=== PATIENT | female | born 1990 | race African-American/Black ===

== ENCOUNTER 2017-12-25 14:29 | Emergency (ER) | payer OTHER ==
--- NOTE | 2017-12-25 14:37 | PDOC ---
Rapid Medical Evaluation Time Seen by Provider: 12/25/17 14:34 Medical Evaluation: 12/25/17 14:34 I have performed a brief in person evaluation of this patient. The patient presents with chief complaint of : pain to the right lower abdomen with urinary frequency. lmp one week ago . Pertinent PE findings: none I have ordered the following: UA, urine preg, urine culture The patient will proceed to the ER for further evaluation.
[2017-12-25 14:40] VITALS: BP 123/76; PULSE 70; TEMP 98; BMI 27.9
[2017-12-25 15:49] LABS: URINE APPEARANCE CLEAR; URINE BILIRUBIN NEGATIVE (NEGATIVE); URINE BLOOD NEGATIVE (NEGATIVE); URINE COLOR YELLOW; URINE GLUCOSE (UA) NEGATIVE (NEGATIVE); URINE KETONE NEGATIVE (NEGATIVE); URINE LEUK ESTERASE NEGATIVE (NEGATIVE); URINE NITRITE NEGATIVE (NEGATIVE); URINE PROTEIN NEGATIVE (NEGATIVE); URINE UROBILINOGEN NEGATIVE mg/dL (0.2-1.0)
[2017-12-25 15:54] LABS: HCG,QUALITATIVE URINE NEGATIVE
--- NOTE | 2017-12-25 15:59 | PDOC ---
History of Present Illness <Juany Wheeler - Last Filed: 12/25/17 18:26> - General History Source: Patient Exam Limitations: No Limitations - History of Present Illness Initial Comments: 12/25/17 17:04 The patient is a 27 year old female, A2, with a significant PMH of HTN who presents to the emergency department with right lower and left lower quadrant pain that began approximately last night. The patient describes the abdominal pain as intermittent, burning, and states the pain was a 6/10 at its worst. The patient reports she experiences pain on either the LLQ or RLQ but never at the same time. The patient notes the RLQ and LLQ pain occasionally radiates to the low back and groin. Of note, the patient states she has been experiencing increased frequency of urination and intermittent nausea over the past month but the abdominal pain has begun 3 days ago. The patient states her LMP was one week ago. The patient reports she has 1 sexual partner and occasionally uses protection. The patient denies chest pain, shortness of breath, headache and dizziness. Denies fever, chills, nausea, vomit, diarrhea and constipation. Denies vaginal discharge or bleeding, dysuria, urgency and hematuria. Allergies: NKA Past surgical history: None reported. Social history: Drinks socially. No reported drug or cigarette use. PCP: Dr. Roberts <Kandy Astorga - Last Filed: 12/25/17 18:34> - General Chief Complaint: Pain Stated Complaint: ABD PAIN Time Seen by Provider: 12/25/17 14:34 Past History - Past Medical History COPD: No HTN: Yes - Suicide/Smoking/Psychosocial Hx Smoking History: Never smoked Have you smoked in the past 12 months: No Information on smoking cessation initiated: No Hx Alcohol Use: No Drug/Substance Use Hx: No Substance Use Type: None <Juany Wheeler - Last Filed: 12/25/17 18:26> <Kandy Astorga - Last Filed: 12/25/17 18:34> - Past Medical History Allergies/Adverse Reactions: Allergies Allergy/AdvReac Type Severity Reaction Status Date / Time No Known Allergies Allergy Verified 12/25/17 14:36 Home Medications: Ambulatory Orders Amlodipine Besylate 5 mg PO DAILY 12/25/17 Doxycycline Hyclate 100 mg PO BID #20 capsule 12/25/17 Review of Systems - Review of Systems Able to Perform ROS?: Yes Comments:: 12/25/17 17:05 GENERAL/CONSTITUTIONAL: No fever or chills. No weakness. HEAD, EYES, EARS, NOSE AND THROAT: No change in vision. No ear pain or discharge. No sore throat. CARDIOVASCULAR: No chest pain or shortness of breath. RESPIRATORY: No cough, wheezing, or hemoptysis. GASTROINTESTINAL: (+) LLQ and RLQ pain. No nausea, vomiting, diarrhea or constipation. GENITOURINARY: No dysuria, frequency, or change in urination. MUSCULOSKELETAL: No joint or muscle swelling or pain. No neck or back pain. SKIN: No rash NEUROLOGIC: No headache, vertigo, loss of consciousness, or change in strength/ sensation. ENDOCRINE: No increased thirst. No abnormal weight change. HEMATOLOGIC/LYMPHATIC: No anemia, easy bleeding, or history of blood clots. ALLERGIC/IMMUNOLOGIC: No hives or skin allergy. <Kandy Astorga - Last Filed: 12/25/17 18:34> *Physical Exam - Vital Signs Last Vital Signs Temp Pulse Resp BP Pulse Ox 98.0 F 70 12 123/76 100 12/25/17 14:36 12/25/17 14:36 12/25/17 14:36 12/25/17 14:36 12/25/17 14:36 <Juany Wheeler - Last Filed: 12/25/17 18:26> - Vital Signs Last Vital Signs Temp Pulse Resp BP Pulse Ox 98.0 F 70 12 123/76 100 12/25/17 14:36 12/25/17 14:36 12/25/17 14:36 12/25/17 14:36 12/25/17 14:36 - Physical Exam Comments: 12/25/17 17:06 GENERAL: Awake, alert, and fully oriented, in no acute distress HEAD: No signs of trauma EYES: PERRLA, EOMI, sclera anicteric, conjunctiva clear ENT: Auricles normal inspection, hearing grossly normal, nares patent, oropharynx clear without exudates. Moist mucosa NECK: Normal ROM, supple, no lymphadenopathy, JVD, or masses LUNGS: Breath sounds equal, clear to auscultation bilaterally. No wheezes, and no crackles HEART: Regular rate and rhythm, normal S1 and S2, no murmurs, rubs or gallops ABDOMEN: (+) RLQ and LLQ tender to palpation. Soft, normoactive bowel sounds. No guarding, no rebound. No masses : (+) Yellowish discharge coming out of the os. (+) Minimal adnexal or CMT tenderness. EXTREMITIES: Normal range of motion, no edema. No clubbing or cyanosis. No cords, erythema, or tenderness NEUROLOGICAL: Cranial nerves II through XII grossly intact. Normal speech, normal gait SKIN: Warm, Dry, normal turgor, no rashes or lesions noted. <Kandy Astorga - Last Filed: 12/25/17 18:34> ED Treatment Course - ADDITIONAL ORDERS Additional order review: Laboratory Results 12/25/17 15:15 Urine Color Yellow Urine Appearance Clear Urine pH 5.0 Ur Specific [place] 1.027 Urine Protein Negative Urine Glucose (UA) Negative Urine Ketones Negative Urine Blood Negative Urine Nitrite Negative Urine Bilirubin Negative Urine Urobilinogen Negative Ur Leukocyte Esterase Negative Urine HCG, Qual Negative <Juany Wheeler - Last Filed: 12/25/17 18:26> - ADDITIONAL ORDERS Additional order review: Laboratory Results 12/25/17 15:15 Urine Color Yellow Urine Appearance Clear Urine pH 5.0 Ur Specific [place] 1.027 Urine Protein Negative Urine Glucose (UA) Negative Urine Ketones Negative Urine Blood Negative Urine Nitrite Negative Urine Bilirubin Negative Urine Urobilinogen Negative Ur Leukocyte Esterase Negative Urine HCG, Qual Negative <Kandy Astorga - Last Filed: 12/25/17 18:34> Medical Decision Making - Medical Decision Making 12/25/17 18:26 Pt presents to the ED complaining of several weeks of pelvic pain, without nausea, vomiting, fever or diarrhea. Abdomen is non tender on my exam. + yellowish discharge coming from the OS on my pelvic exam, but minimal CMT and adnexal tenderness---findings are equivocal for PID. UA is negative. Will treat for PID, order doxycycline but tell patient not to start unless GC DNA probe is positive. Will discharge home with referral to primary [facility]. <Juany Wheeler - Last Filed: 12/25/17 18:26> *DC/Admit/Observation/Transfer - Discharge Dispostion Admit: No <Juany Wheeler - Last Filed: 12/25/17 18:26> - Attestations Scribe Attestion: 12/25/17 17:15 Documentation prepared by Kandy Astorga, acting as medical i d sales for Juany Wheeler MD. <Kandy Astorga - Last Filed: 12/25/17 18:34> Diagnosis at time of Disposition: Pelvic pain - Discharge Dispostion Disposition: HOME Condition at time of disposition: Good - Prescriptions Prescriptions: Doxycycline Hyclate 100 mg PO BID #20 capsule - Referrals Referrals: Nichole Roberts MD [Primary Care Provider] - - Patient Instructions Printed Discharge Instructions: DI for Pelvic Pain Additional Instructions: return to the ED for fever, severe pelvic or abdominal pain, nausea and vomiting , other new or worsening symptoms. You may have PID, which is a sexually transmitted infection--you recieved part of the treatment here today, but will need to start doxycycline if the test for Gonorrhea or Chlamydia is positive. there is a prescription for this medicine at your pharmacy. Call [phone] in two days for your results. Abstain from intercourse until you know the results of your tests.
[2017-12-25] MEDS ORDERED: AZITHROMYCIN 1 GM PACKET PO ONE (18:12)
[2017-12-25] MEDS ORDERED: AZITHROMYCIN 250 MG TABLET ONE (18:30)
[2017-12-25] MEDS ORDERED: WATER FOR INJ,STERILE 10 ML ONE (18:35)
== END 2017-12-25 18:52 | disposition home or self-care (01) ==
LOC: JER 14:29
DX: R10.2 Pelvic and perineal pain (principal); N73.8 Other specified female pelvic inflammatory diseases
CPT/HCPCS: 36415; 81003; 84703; 87086; 87491; 87591; 96372; 99282-25

== ENCOUNTER 2019-04-01 14:48 | Emergency (ER) | payer OTHER | END 2019-04-01 15:14 | disposition left against medical advice (07) | LOC: JERFT 14:48 ==

== ENCOUNTER 2019-08-30 08:28 | Emergency (ER) | payer OTHER ==
[2019-08-30 08:33] VITALS: BP 136/90; PULSE 70; TEMP 98.2; BMI 31.8
--- NOTE | 2019-08-30 09:07 | PDOC ---
History of Present Illness - General Chief Complaint: Vaginal Sxs Stated Complaint: STOMACH PAIN Time Seen by Provider: 08/30/19 08:35 History Source: Patient Exam Limitations: No Limitations Past History - Past Medical History Allergies/Adverse Reactions: Allergies Allergy/AdvReac Type Severity Reaction Status Date / Time No Known Allergies Allergy Verified 04/01/19 15:04 Home Medications: Ambulatory Orders Amlodipine Besylate 5 mg PO DAILY 12/25/17 Acetaminophen [Tylenol] 650 mg PO Q6H PRN 08/30/19 Fluconazole [Diflucan] 150 mg PO ONCE #1 tablet 08/30/19 Miconazole Nitrate [Monistat-7] 100 mg PV HS 7 Days #1 supp.vag 08/30/19 COPD: No HTN: Yes (amlodipine) - Reproductive History (#): 4 Para: 1 Spontaneous : 2 - Immunization History Immunization Up to Date: No - Psycho Social/Smoking Cessation Hx Smoking History: Never smoked Have you smoked in the past 12 months: No Hx Alcohol Use: No Drug/Substance Use Hx: No Substance Use Type: None *Physical Exam - Vital Signs Last Vital Signs Temp Pulse Resp BP Pulse Ox 98.2 F 70 17 136/90 99 08/30/19 08:31 08/30/19 08:31 08/30/19 08:31 08/30/19 08:31 08/30/19 08:31 - Physical Exam General Appearance: No: Apparent Distress Female Pelvic Exam: positive: normal external exam, discharge (thick, cottage like discharge). negative: CMT, adnexal tenderness, vaginal bleeding Gastrointestinal/Abdominal: positive: Normal Bowel Sounds, Soft. negative: Tender, Distended, Guarding, Rebound Integumentary: negative: Rash Neurologic: positive: Alert Medical Decision Making - Medical Decision Making 29 y/o F with hx of HTN presents with vaginal itching x 2 days. States has not noticed any unusual discharge. Denies fever, sob, cp, abd pain, n/v, urinary complaints. LNMP was 2 weeks ago. Patient also requesting STD checkup Patient with vaginal yeast infection STD (chlam/brenden/tric) sent; not currently suspicious for STD 08/30/19 09:01 Discharge - Discharge Information Problems reviewed: Yes Clinical Impression/Diagnosis: Candidiasis of female genitalia Condition: Stable Disposition: HOME - Admission No - Additional Discharge Information Prescriptions: Fluconazole [Diflucan] 150 mg PO ONCE #1 tablet Miconazole Nitrate [Monistat-7] 100 mg PV HS 7 Days #1 supp.vag Prescription Drug Monitoring Program (I-STOP) results: I-STOP not reviewed - Follow up/Referral - Patient Discharge Instructions Patient Printed Discharge Instructions: DI for Vaginal Yeast Infection Additional Instructions: Thank you for choosing [facility]. It was a pleasure taking care of you. Please take the Diflucan for your yeast infection. This alone will usually clear the infection If symptoms are still persisting, you may use the Monistat Follow-up with your professor of biochemistry Return to the Emergency Department if your symptoms worsen or persist or have other concerning symptoms. - Post Discharge Activity
== END 2019-08-30 09:22 | disposition home or self-care (01) ==
LOC: JERFT 08:28
DX: B37.3 Candidiasis of vulva and vagina (principal); I10 Essential (primary) hypertension
CPT/HCPCS: 36415; 87491; 87591; 87661; 99281-25

== ENCOUNTER 2020-11-29 09:10 | Inpatient (IN) | payer OTHER ==
[2020-11-29 10:11] VITALS: BMI 34.2
[2020-11-29] MEDS ORDERED: BUTORPHANOL TARTRATE 1 MG/ML VIAL IVPB PRN (10:42)
[2020-11-29] MEDS ORDERED: ELECTROLYTE-148 SOLN 1,000 ML IV SCH (10:45)
[2020-11-29] MEDS ORDERED: ELECTROLYTE-148 SOLN 500 ML IV ONE (11:04)
[2020-11-29] MEDS ORDERED: PROMETHAZINE HCL 25 MG/1 ML VIAL IVPUSH ONE (11:04)
[2020-11-29 11:55] LABS: BASO % 0.7 % (0-2.0); EOS % 0.3 % (0-4.5); HEMATOCRIT 34.9 % (32.4-45.2); HEMOGLOBIN 11.7 GM/dL (10.7-15.3); LYMPH % 16.7 % (8-40); MCH 30.5 pg (25.7-33.7); MCHC 33.6 g/dl (32.0-36.0); MEAN CELL VOLUME 90.7 fl (80-96); MEAN PLT VOLUME 8.7 fl (7.5-11.1); MONO % 21.3 % (3.8-10.2); PLATELET COUNT 190 K/MM3 (134-434); RBC 3.85 M/mm3 (3.60-5.2); RDW 14.7 % (11.6-15.6); WHITE BLOOD COUNT 3.6 K/mm3 (4.0-10.0)
[2020-11-29 12:02] LABS: INR 1.11 (0.83-1.09); PROTHROMBIN TIME (PATIENT) 13.4 SEC (9.7-13.0)
[2020-11-29 12:04] LABS: ACTIVATED PTT 30.2 SECONDS (25.2-36.5)
[2020-11-29 12:16] LABS: POTASSIUM 4.1 mmol/L (3.5-5.1)
[2020-11-29 12:17] LABS: BLOOD UREA NITROGEN 9.2 mg/dL (7-18); CALCIUM 8.8 mg/dL (8.5-10.1)
[2020-11-29 12:21] LABS: CREATININE 0.8 mg/dL (0.55-1.3)
[2020-11-29] MEDS ORDERED: DINOPROSTONE 10 MG VAGINAL SUPPOSITORY VG ONE (12:23)
[2020-11-29 12:24] LABS: ANISOCYTOSIS 0; MACROCYTOSIS 0; PLATELET ESTIMATE NORMAL
[2020-11-29 15:19] LABS: EPI CELLS 27 /uL (0-25.1); HYALINE CASTS 1 /uL (0-3.1); URINE APPEARANCE CLEAR; URINE BACTERIA 1639 /uL (0-1359); URINE BILIRUBIN NEGATIVE (NEGATIVE); URINE COLOR YELLOW; URINE GLUCOSE (UA) NEGATIVE (NEGATIVE); URINE KETONE 1+ (NEGATIVE); URINE LEUK ESTERASE TRACE (NEGATIVE); URINE NITRITE NEGATIVE (NEGATIVE); URINE PROTEIN NEGATIVE (NEGATIVE); URINE RBC 3 /uL (0-23.9); URINE UROBILINOGEN 0.2 mg/dL (0.2-1.0); URINE WBC 23 /uL (0-25.8)
[2020-11-29] MEDS ORDERED: ACETAMINOPHEN 1000 MG/100 ML VIAL (NON FORMULARY) IVPB PRN (18:08)
[2020-11-29] MEDS ORDERED: AMPICILLIN - 2 GM in SODIUM CHLORIDE 100 ML IVPB ONE (18:09)
[2020-11-29] MEDS ORDERED: ACETAMINOPHEN INJECTION 100 ML IVPB ONE (18:11)
[2020-11-29] MEDS ORDERED: AMPICILLIN SODIUM 2 GM VIAL ONE (18:11)
[2020-11-29] MEDS ORDERED: SODIUM CHLORIDE 100 ML IVPB ONE (18:11)
[2020-11-29 19:46] LABS: BASO % 0.5 % (0-2.0); EOS % 0.1 % (0-4.5); HEMATOCRIT 34.1 % (32.4-45.2); HEMOGLOBIN 11.7 GM/dL (10.7-15.3); LYMPH % 17.5 % (8-40); MCHC 34.3 g/dl (32.0-36.0); MEAN CELL VOLUME 90.4 fl (80-96); MEAN PLT VOLUME 9.1 fl (7.5-11.1); MONO % 17.1 % (3.8-10.2); NEUT % 64.8 % (42.8-82.8); PLATELET COUNT 177 K/MM3 (134-434); RBC 3.77 M/mm3 (3.60-5.2); RDW 14.5 % (11.6-15.6); WHITE BLOOD COUNT 4.5 K/mm3 (4.0-10.0)
[2020-11-29 19:55] LABS: INR 1.09 (0.83-1.09); PROTHROMBIN TIME (PATIENT) 13.2 SEC (9.7-13.0)
[2020-11-29 19:58] LABS: ACTIVATED PTT 31.5 SECONDS (25.2-36.5)
[2020-11-29 20:03] LABS: POTASSIUM 3.9 mmol/L (3.5-5.1)
[2020-11-29 20:05] LABS: ALBUMIN 2.8 g/dl (3.4-5.0); BLOOD UREA NITROGEN 8.8 mg/dL (7-18); CALCIUM 8.6 mg/dL (8.5-10.1)
[2020-11-29 20:08] LABS: CREATININE 0.8 mg/dL (0.55-1.3)
[2020-11-29 20:10] LABS: BILIRUBIN,TOTAL 0.4 mg/dL (0.2-1); TOT PROT 6.4 g/dl (6.4-8.2)
[2020-11-29] MEDS ORDERED: OXYTOCIN 30 UNITS in 0.9% NS 30 UNIT/500 ML INFUS.BAG IVPB SCH (21:00)
[2020-11-29] MEDS ORDERED: BISACODYL 10 MG SUPP.RECT PR PRN (21:01)
[2020-11-29] MEDS ORDERED: BENZOCAINE 28 GM HEMORRHOIDAL OINTMENT PR PRN (21:01)
[2020-11-29] MEDS ORDERED: WITCH HAZEL 50% (TUCKS) 40 PAD/JAR PAD TP PRN (21:01)
[2020-11-29] MEDS ORDERED: METHYLERGONOVINE MALEATE 0.2 MG/1 ML AMP IM PRN (21:01)
[2020-11-29] MEDS ORDERED: BENZOCAINE 20% 57 GM BOTTLE TP PRN (21:01)
[2020-11-29] MEDS ORDERED: PROMETHAZINE HCL 25 MG/1 ML VIAL ONE (21:15)
[2020-11-29] MEDS ORDERED: OXYTOCIN 30 UNITS in 0.9% NS 30 UNIT/500 ML INFUS.BAG IVPB ONE (21:15)
[2020-11-29] MEDS ORDERED: BUTORPHANOL TARTRATE 2 MG/ML VIAL ONE (21:15)
[2020-11-29] MEDS ORDERED: FENTANYL/BUPIVACAINE/NS/PF - PCEA - 50 ML DISP.SYRIN EP ONE (22:59)
[2020-11-29] MEDS ORDERED: PCA PUMP NR ONE (22:59)
[2020-11-29] MEDS ORDERED: LABETALOL HCL 100 MG TABLET (FP) ONE (22:59)
[2020-11-29] MEDS: LABETALOL HCL 100 MG TABLET (FP) PO SCH (23:00)
[2020-11-29] MEDS ORDERED: NALOXONE HCL 0.4 MG/ML VIAL IVPUSH PRN (23:11)
[2020-11-29] MEDS ORDERED: FENTANYL/BUPIVACAINE/NS/PF - PCEA - 50 ML DISP.SYRIN EP SCH (23:15)
[2020-11-29] MEDS ORDERED: BUPIVACAINE HCL/PF 0.25% (2.5MG/ML) 10 ML VIAL ONE (23:17)
[2020-11-30] MEDS ORDERED: SODIUM CHLORIDE 100 ML IVPB ONE ×3 (00:06→03:51)
[2020-11-30] MEDS ORDERED: AMPICILLIN SODIUM 1 GM VIAL ONE ×3 (00:06→03:51)
[2020-11-30] MEDS ORDERED: FENTANYL/BUPIVACAINE/NS/PF - PCEA - 50 ML DISP.SYRIN EP SCH (00:43)
[2020-11-30] MEDS: AMPICILLIN - 1 GM in SODIUM CHLORIDE 100 ML IVPB SCH ×3 (03:15→06:03)
[2020-11-30] MEDS ORDERED: FENTANYL/BUPIVACAINE/NS/PF - PCEA - 50 ML DISP.SYRIN EP ONE (03:51)
[2020-11-30] MEDS ORDERED: OXYTOCIN 20 UNITS in 0.9% NS 20 UNIT/1,000 ML INFUS.BAG IV ONE (03:52)
[2020-11-30] MEDS ORDERED: LIDOCAINE HCL 1% PRESERVATIVE FREE - 30ML VIAL ONE (03:52)
[2020-11-30] MEDS ORDERED: PCA PUMP NR ONE (05:03)
[2020-11-30] MEDS ORDERED: IBUPROFEN 600 MG TABLET (FP) PO ONE (07:55)
[2020-11-30] MEDS ORDERED: ACETAMINOPHEN 325 MG TABLET (FP) ONE (07:55)
[2020-11-30] MEDS ORDERED: OXYTOCIN 20 UNITS in 0.9% NS 20 UNIT/1,000 ML INFUS.BAG IV SCH (08:00)
[2020-11-30] MEDS: IBUPROFEN 600 MG TABLET (FP) PO PRN ×3 (08:00→23:09)
[2020-11-30 08:55] LABS: CORD BASE EXCESS -4.7 mmol/L (0-2); CORD PCO2 41.1 mmHg (30-78); CORD pH 7.326 (7.14-7.44)
[2020-11-30 08:56] LABS: CORD BASE EXCESS -4.7 mmol/L (0-2); CORD HCO3 22.6 mmHg (20-29); CORD PCO2 50.7 mmHg (30-78); CORD pH 7.267 (7.14-7.44)
[2020-11-30 08:59] LABS: BASO % 0.3 % (0-2.0); HEMATOCRIT 35.8 % (32.4-45.2); LYMPH % 10.9 % (8-40); MCH 30.8 pg (25.7-33.7); MCHC 33.6 g/dl (32.0-36.0); MEAN CELL VOLUME 91.6 fl (80-96); MEAN PLT VOLUME 8.6 fl (7.5-11.1); MONO % 9.7 % (3.8-10.2); NEUT % 79.1 % (42.8-82.8); PLATELET COUNT 155 K/MM3 (134-434); RDW 14.6 % (11.6-15.6); WHITE BLOOD COUNT 10.3 K/mm3 (4.0-10.0)
[2020-11-30] MEDS: LABETALOL HCL 100 MG TABLET (FP) PO SCH ×2 (10:10→23:07)
[2020-11-30] MEDS: ACETAMINOPHEN 325 MG TABLET (FP) PO PRN ×2 (13:29→23:09)
[2020-12-01] MEDS: ACETAMINOPHEN 325 MG TABLET (FP) PO PRN ×2 (10:09→19:53)
[2020-12-01] MEDS: IBUPROFEN 600 MG TABLET (FP) PO PRN ×2 (10:10→19:54)
[2020-12-01] MEDS: LABETALOL HCL 100 MG TABLET (FP) PO SCH ×2 (10:10→22:14)
[2020-12-02] MEDS: ACETAMINOPHEN 325 MG TABLET (FP) PO PRN ×2 (05:00→09:51)
[2020-12-02] MEDS: IBUPROFEN 600 MG TABLET (FP) PO PRN ×2 (05:00→09:52)
[2020-12-02] MEDS: LABETALOL HCL 100 MG TABLET (FP) PO SCH (09:51)
[2020-12-02 11:55] VITALS: BP 121/57; PULSE 94; TEMP 98.4
== END 2020-12-02 13:30 | disposition home or self-care (01) | DRG 560 ==
LOC: JLDR 09:10 → J3W 11-30 08:55
PROVIDERS: ADMIT Obstetrics & Gynecology; ATTEND Obstetrics & Gynecology
PROC: 10E0XZZ Delivery of Products of Conception, External Approach (ICD-10-PCS; principal; 2020-11-30)
DX: O16.4 Unspecified maternal hypertension, complicating childbirth (principal); O34.13 Maternal care for benign tumor of corpus uteri, third trimester; E86.0 Dehydration; Z3A.39 39 weeks gestation of pregnancy; Z37.0 Single live birth
CPT/HCPCS: 36415; 36600; 59409; 80048; 80053; 81003; 82803; 83605; 85025; 85461; 85610; 85730; 86780; 86850; 86870; 86900; 86901; 86902; 86999; 87040; 87086; 87389; J0131

== ENCOUNTER 2020-12-05 05:32 | Inpatient (IN) | payer OTHER ==
[2020-12-05] MEDS ORDERED: ACETAMINOPHEN 1000 MG/100 ML VIAL (NON FORMULARY) IVPB ONE (06:03)
[2020-12-05] MEDS ORDERED: SODIUM CHLORIDE 1,000 ML IV STA (06:03)
[2020-12-05] MEDS ORDERED: ACETAMINOPHEN INJECTION 100 ML IVPB ONE (06:32)
[2020-12-05 06:51] LABS: INR 1.06 (0.83-1.09)
[2020-12-05 06:54] LABS: ACTIVATED PTT 38.4 SECONDS (25.2-36.5)
[2020-12-05 07:01] LABS: POTASSIUM 3.9 mmol/L (3.5-5.1)
[2020-12-05 07:03] LABS: CALCIUM 7.8 mg/dL (8.5-10.1)
[2020-12-05 07:04] LABS: ALBUMIN 2.8 g/dl (3.4-5.0); BLOOD UREA NITROGEN 11.3 mg/dL (7-18)
[2020-12-05 07:06] LABS: BILIRUBIN,DIRECT 0.1 mg/dL (0.0-0.2)
[2020-12-05 07:08] LABS: BILIRUBIN,TOTAL 0.4 mg/dL (0.2-1)
[2020-12-05 07:09] LABS: TOT PROT 6.4 g/dl (6.4-8.2)
[2020-12-05 07:42] LABS: VENOUS BASE EXCESS -1.3 mmol/L (-2-2); VENOUS O2 SATURATION 87.7 % (70-80); VENOUS PCO2 33.2 mmHg (38-52); VENOUS PH 7.443 (7.310-7.410)
[2020-12-05 08:16] LABS: BASO % 0.1 % (0-2.0); HEMATOCRIT 37.2 % (32.4-45.2); HEMOGLOBIN 12.4 GM/dL (10.7-15.3); LYMPH % 13.1 % (8-40); MCH 30.3 pg (25.7-33.7); MCHC 33.3 g/dl (32.0-36.0); MEAN PLT VOLUME 8.6 fl (7.5-11.1); MONO % 2.6 % (3.8-10.2); NEUT % 84.2 % (42.8-82.8); PLATELET COUNT 179 K/MM3 (134-434); RBC 4.09 M/mm3 (3.60-5.2); RDW 14.8 % (11.6-15.6); WHITE BLOOD COUNT 5.8 K/mm3 (4.0-10.0)
[2020-12-05 08:27] LABS: EPI CELLS >36 /uL (0-25.1); HYALINE CASTS 4 /uL (0-3.1); PH,URINE 6.5 (5.0-8.0); URINE APPEARANCE CLEAR; URINE BACTERIA 219 /uL (0-1359); URINE BILIRUBIN NEGATIVE (NEGATIVE); URINE COLOR YELLOW; URINE GLUCOSE (UA) NEGATIVE (NEGATIVE); URINE KETONE NEGATIVE (NEGATIVE); URINE LEUK ESTERASE NEGATIVE (NEGATIVE); URINE NITRITE NEGATIVE (NEGATIVE); URINE PROTEIN 4+ (NEGATIVE); URINE RBC 9 /uL (0-23.9); URINE UROBILINOGEN 0.2 mg/dL (0.2-1.0); URINE WBC 16 /uL (0-25.8)
[2020-12-05] MEDS ORDERED: AZITHROMYCIN IVPB 500 MG in DEXTROSE 5%-WATER - 250 ML IVPB ONE (09:00)
[2020-12-05] MEDS ORDERED: AZITHROMYCIN IVPB 500 MG/250 ML BAG IVPB ONE (09:40)
[2020-12-05] MEDS: CHOLECALCIFEROL (VIT D3) 1,000 UNIT (25 MCG) TABLET PO SCH (13:00)
[2020-12-05] MEDS ORDERED: ENOXAPARIN NA (PORCINE) 30 MG/0.3 ML DISP.SYRIN SQ SCH (13:15)
[2020-12-05] MEDS ORDERED: ENOXAPARIN NA (PORCINE) 100 MG/1 ML DISP.SYRIN SQ ONE (13:16)
[2020-12-05] MEDS ORDERED: ACETAMINOPHEN 325 MG TABLET (FP) ONE (13:16)
[2020-12-05] MEDS: ACETAMINOPHEN 500 MG TABLET (FP) PO PRN ×2 (13:38→19:37)
[2020-12-05] MEDS: predniSONE 20 MG TABLET (UD) PO SCH (13:38)
[2020-12-05 15:37] VITALS: BMI 31.4
[2020-12-05 16:52] LABS: N-TERMINAL BNP 717.6 pg/ml (5-125)
[2020-12-05] MEDS: INSULIN SLIDING SCALE (NOVOLOG) 1 VIAL SQ SCH ×2 (17:47→21:49)
[2020-12-05] MEDS ORDERED: PT OWN MED DRAWER 7, Y5N ONE (21:27)
[2020-12-05] MEDS: LABETALOL HCL 100 MG TABLET (FP) PO SCH (21:51)
[2020-12-05] MEDS: ASCORBIC ACID 500 MG TABLET (FP) PO SCH (21:52)
[2020-12-05] MEDS: ENOXAPARIN NA (PORCINE) 100 MG/1 ML DISP.SYRIN SQ SCH (22:23)
[2020-12-06] MEDS ORDERED: guaiFENesin 200 MG/10 ML 10 ML UNIT-DOSE CUPS PO ONE (05:55)
[2020-12-06] MEDS: INSULIN SLIDING SCALE (NOVOLOG) 1 VIAL SQ SCH ×4 (06:00→22:35)
[2020-12-06 08:43] LABS: HEMATOCRIT 38.2 % (32.4-45.2); HEMOGLOBIN 12.8 GM/dL (10.7-15.3); MCH 30.5 pg (25.7-33.7); MCHC 33.5 g/dl (32.0-36.0); MEAN PLT VOLUME 8.6 fl (7.5-11.1); PLATELET COUNT 213 K/MM3 (134-434); RBC 4.19 M/mm3 (3.60-5.2); RDW 14.5 % (11.6-15.6); WHITE BLOOD COUNT 6.1 K/mm3 (4.0-10.0)
[2020-12-06 08:45] LABS: INR 1.08 (0.83-1.09)
[2020-12-06 08:47] LABS: ACTIVATED PTT 54.9 SECONDS (25.2-36.5)
[2020-12-06 09:06] LABS: CALCIUM 8.1 mg/dL (8.5-10.1)
[2020-12-06 09:07] LABS: ALBUMIN 2.4 g/dl (3.4-5.0); BLOOD UREA NITROGEN 11.9 mg/dL (7-18)
[2020-12-06 09:10] LABS: CREATININE 0.7 mg/dL (0.55-1.3); PHOSPHOROUS 3.6 mg/dL (2.5-4.9)
[2020-12-06 09:11] LABS: BILIRUBIN,TOTAL 0.6 mg/dL (0.2-1)
[2020-12-06] MEDS: CHOLECALCIFEROL (VIT D3) 1,000 UNIT (25 MCG) TABLET PO SCH (09:32)
[2020-12-06] MEDS: LABETALOL HCL 100 MG TABLET (FP) PO SCH ×2 (09:32→22:28)
[2020-12-06] MEDS: ZINC SULFATE 220 MG CAPSULE (FP) PO SCH (09:32)
[2020-12-06] MEDS: ACETAMINOPHEN 500 MG TABLET (FP) PO PRN ×3 (09:32→22:36)
[2020-12-06] MEDS: ASCORBIC ACID 500 MG TABLET (FP) PO SCH ×2 (09:32→22:28)
[2020-12-06] MEDS: predniSONE 20 MG TABLET (UD) PO SCH (09:32)
[2020-12-06] MEDS: ENOXAPARIN NA (PORCINE) 100 MG/1 ML DISP.SYRIN SQ SCH ×2 (09:48→22:29)
[2020-12-06] MEDS ORDERED: AZITHROMYCIN 250 MG TABLET PO SCH (10:00)
[2020-12-06] MEDS: guaiFENesin 200 MG/10 ML 10 ML UNIT-DOSE CUPS PO PRN ×2 (15:39→22:28)
[2020-12-06] MEDS: OSELTAMIVIR PHOSPHATE 75 MG CAPSULE PO SCH (22:28)
[2020-12-06] MEDS ORDERED: MELATONIN 5 MG TABLETS PO ONE (23:35)
[2020-12-07] MEDS: BENZOCAINE/MENTH/CETYLPYRD CL 1 EACH LOZENGE MM PRN ×3 (00:04→21:14)
[2020-12-07] MEDS: guaiFENesin 200 MG/10 ML 10 ML UNIT-DOSE CUPS PO PRN (04:49)
[2020-12-07] MEDS: INSULIN SLIDING SCALE (NOVOLOG) 1 VIAL SQ SCH ×4 (06:31→22:00)
[2020-12-07] MEDS: ACETAMINOPHEN 500 MG TABLET (FP) PO PRN ×3 (06:34→21:24)
[2020-12-07 08:28] LABS: HEMOGLOBIN 12.5 GM/dL (10.7-15.3); MCH 30.7 pg (25.7-33.7); MCHC 33.7 g/dl (32.0-36.0); PLATELET COUNT 232 K/MM3 (134-434); RBC 4.06 M/mm3 (3.60-5.2); RDW 14.7 % (11.6-15.6); WHITE BLOOD COUNT 8.2 K/mm3 (4.0-10.0)
[2020-12-07 08:50] LABS: POTASSIUM 3.7 mmol/L (3.5-5.1)
[2020-12-07 09:14] LABS: CALCIUM 7.7 mg/dL (8.5-10.1)
[2020-12-07 09:15] LABS: BLOOD UREA NITROGEN 12.1 mg/dL (7-18); MAGNESIUM 1.6 mg/dL (1.8-2.4)
[2020-12-07 09:17] LABS: CREATININE 0.8 mg/dL (0.55-1.3)
[2020-12-07] MEDS: ENOXAPARIN NA (PORCINE) 100 MG/1 ML DISP.SYRIN SQ SCH ×2 (09:17→21:14)
[2020-12-07] MEDS: CHOLECALCIFEROL (VIT D3) 1,000 UNIT (25 MCG) TABLET PO SCH (09:17)
[2020-12-07] MEDS: OSELTAMIVIR PHOSPHATE 75 MG CAPSULE PO SCH ×2 (09:17→21:13)
[2020-12-07] MEDS: ASCORBIC ACID 500 MG TABLET (FP) PO SCH ×2 (09:17→21:14)
[2020-12-07] MEDS: LABETALOL HCL 100 MG TABLET (FP) PO SCH ×2 (09:17→21:13)
[2020-12-07] MEDS: DEXAMETHASONE SOD PHOSPHATE 4 MG/1 ML VIAL IVPUSH SCH (09:17)
[2020-12-07] MEDS: ZINC SULFATE 220 MG CAPSULE (FP) PO SCH (09:17)
[2020-12-07 09:18] LABS: ALBUMIN 2.4 g/dl (3.4-5.0); BILIRUBIN,TOTAL 0.4 mg/dL (0.2-1); PHOSPHOROUS 2.8 mg/dL (2.5-4.9)
[2020-12-07] MEDS ORDERED: INSULIN (NOVOLOG) ASPART 100 UNITS/ML 10ML VIAL ONE (17:42)
[2020-12-08] MEDS: guaiFENesin 200 MG/10 ML 10 ML UNIT-DOSE CUPS PO PRN ×2 (02:20→05:45)
[2020-12-08] MEDS: INSULIN SLIDING SCALE (NOVOLOG) 1 VIAL SQ SCH ×4 (06:01→22:26)
[2020-12-08 08:16] LABS: HEMATOCRIT 38.5 % (32.4-45.2); HEMOGLOBIN 12.9 GM/dL (10.7-15.3); MCH 30.3 pg (25.7-33.7); MCHC 33.7 g/dl (32.0-36.0); MEAN CELL VOLUME 90.1 fl (80-96); MEAN PLT VOLUME 7.9 fl (7.5-11.1); PLATELET COUNT 252 K/MM3 (134-434); RBC 4.27 M/mm3 (3.60-5.2); RDW 14.6 % (11.6-15.6); WHITE BLOOD COUNT 8.8 K/mm3 (4.0-10.0)
[2020-12-08 08:35] LABS: POTASSIUM 4.2 mmol/L (3.5-5.1)
[2020-12-08 08:38] LABS: BLOOD UREA NITROGEN 11.3 mg/dL (7-18); CALCIUM 8.3 mg/dL (8.5-10.1)
[2020-12-08 08:41] LABS: CREATININE 0.7 mg/dL (0.55-1.3)
[2020-12-08] MEDS: ACETAMINOPHEN 500 MG TABLET (FP) PO PRN (09:22)
[2020-12-08] MEDS: DEXAMETHASONE SOD PHOSPHATE 4 MG/1 ML VIAL IVPUSH SCH (09:24)
[2020-12-08] MEDS: ENOXAPARIN NA (PORCINE) 100 MG/1 ML DISP.SYRIN SQ SCH ×2 (09:25→22:01)
[2020-12-08] MEDS: LABETALOL HCL 100 MG TABLET (FP) PO SCH ×2 (09:25→21:49)
[2020-12-08] MEDS: OSELTAMIVIR PHOSPHATE 75 MG CAPSULE PO SCH ×2 (09:25→21:49)
[2020-12-08] MEDS: CHOLECALCIFEROL (VIT D3) 1,000 UNIT (25 MCG) TABLET PO SCH (09:26)
[2020-12-08] MEDS: ASCORBIC ACID 500 MG TABLET (FP) PO SCH ×2 (09:26→21:49)
[2020-12-08] MEDS: ZINC SULFATE 220 MG CAPSULE (FP) PO SCH (09:26)
[2020-12-08] MEDS ORDERED: REMDESIVIR 200 MG in SODIUM CHLORIDE 210 ML IVPB ONE (12:00)
[2020-12-08] MEDS ORDERED: PT OWN MED DRAWER 7, Y5N ONE (12:43)
[2020-12-08] MEDS: ALBUTEROL SO4 HFA INHALER IH SCH ×3 (12:49→20:51)
[2020-12-08] MEDS: BUDESONIDE/FORMETEROL FUMARATE 160/4.5 mcg INHALER IH SCH ×2 (12:49→22:02)
[2020-12-08] MEDS ORDERED: INSULIN (NOVOLOG) ASPART 100 UNITS/ML 10ML VIAL ONE (17:06)
[2020-12-09] MEDS: guaiFENesin/CODEINE 10 ML UNIT-DOSE CUPS PO PRN ×3 (04:42→18:03)
[2020-12-09] MEDS: ACETAMINOPHEN 500 MG TABLET (FP) PO PRN (04:48)
[2020-12-09] MEDS: INSULIN SLIDING SCALE (NOVOLOG) 1 VIAL SQ SCH ×2 (06:13→11:29)
[2020-12-09 09:54] LABS: HEMATOCRIT 37.7 % (32.4-45.2); HEMOGLOBIN 12.7 GM/dL (10.7-15.3); MCH 30.6 pg (25.7-33.7); MCHC 33.6 g/dl (32.0-36.0); MEAN CELL VOLUME 91.1 fl (80-96); MEAN PLT VOLUME 8.5 fl (7.5-11.1); PLATELET COUNT 296 K/MM3 (134-434); RBC 4.14 M/mm3 (3.60-5.2); RDW 14.5 % (11.6-15.6); WHITE BLOOD COUNT 5.3 K/mm3 (4.0-10.0)
[2020-12-09] MEDS: ENOXAPARIN NA (PORCINE) 100 MG/1 ML DISP.SYRIN SQ SCH ×2 (09:54→23:03)
[2020-12-09] MEDS: ASCORBIC ACID 500 MG TABLET (FP) PO SCH ×2 (09:55→23:03)
[2020-12-09] MEDS: CHOLECALCIFEROL (VIT D3) 1,000 UNIT (25 MCG) TABLET PO SCH (09:55)
[2020-12-09] MEDS: DEXAMETHASONE SOD PHOSPHATE 4 MG/1 ML VIAL IVPUSH SCH (09:55)
[2020-12-09] MEDS: LABETALOL HCL 100 MG TABLET (FP) PO SCH (09:55)
[2020-12-09] MEDS: OSELTAMIVIR PHOSPHATE 75 MG CAPSULE PO SCH ×2 (09:55→23:03)
[2020-12-09] MEDS: ZINC SULFATE 220 MG CAPSULE (FP) PO SCH (09:55)
[2020-12-09] MEDS: BUDESONIDE/FORMETEROL FUMARATE 160/4.5 mcg INHALER IH SCH ×2 (09:56→23:03)
[2020-12-09] MEDS: ALBUTEROL SO4 HFA INHALER IH SCH ×4 (09:56→20:49)
[2020-12-09 10:56] LABS: CALCIUM 8.3 mg/dL (8.5-10.1)
[2020-12-09 11:00] LABS: CREATININE 0.6 mg/dL (0.55-1.3)
[2020-12-09 11:07] LABS: POTASSIUM 4.4 mmol/L (3.5-5.1)
[2020-12-09] MEDS: REMDESIVIR 100 MG in SODIUM CHLORIDE 230 ML IVPB SCH (11:24)
[2020-12-10] MEDS: LABETALOL HCL 100 MG TABLET (FP) PO SCH ×2 (02:20→11:04)
[2020-12-10 09:19] LABS: HEMATOCRIT 39.7 % (32.4-45.2); HEMOGLOBIN 13.6 GM/dL (10.7-15.3); MCH 30.8 pg (25.7-33.7); MCHC 34.2 g/dl (32.0-36.0); MEAN CELL VOLUME 90.2 fl (80-96); PLATELET COUNT 376 K/MM3 (134-434); RBC 4.41 M/mm3 (3.60-5.2); WHITE BLOOD COUNT 4.8 K/mm3 (4.0-10.0)
[2020-12-10 09:47] LABS: POTASSIUM 4.3 mmol/L (3.5-5.1)
[2020-12-10 10:36] LABS: ALBUMIN 2.1 g/dl (3.4-5.0); CALCIUM 8.2 mg/dL (8.5-10.1)
[2020-12-10 10:37] LABS: BLOOD UREA NITROGEN 18.7 mg/dL (7-18); MAGNESIUM 2.1 mg/dL (1.8-2.4)
[2020-12-10 10:38] LABS: CREATININE 0.7 mg/dL (0.55-1.3)
[2020-12-10 10:39] LABS: BILIRUBIN,TOTAL 0.4 mg/dL (0.2-1); TOT PROT 6.3 g/dl (6.4-8.2)
[2020-12-10] MEDS ORDERED: PT OWN MED DRAWER 7, Y5N ONE ×4 (10:57→20:16)
[2020-12-10] MEDS: guaiFENesin/CODEINE 10 ML UNIT-DOSE CUPS PO PRN (11:04)
[2020-12-10] MEDS: ASCORBIC ACID 500 MG TABLET (FP) PO SCH (11:04)
[2020-12-10] MEDS: OSELTAMIVIR PHOSPHATE 75 MG CAPSULE PO SCH (11:04)
[2020-12-10] MEDS: DEXAMETHASONE SOD PHOSPHATE 4 MG/1 ML VIAL IVPUSH SCH (11:04)
[2020-12-10] MEDS: CHOLECALCIFEROL (VIT D3) 1,000 UNIT (25 MCG) TABLET PO SCH (11:04)
[2020-12-10] MEDS: ZINC SULFATE 220 MG CAPSULE (FP) PO SCH (11:04)
[2020-12-10] MEDS: ALBUTEROL SO4 HFA INHALER IH SCH ×3 (11:05→17:40)
[2020-12-10] MEDS: BUDESONIDE/FORMETEROL FUMARATE 160/4.5 mcg INHALER IH SCH (11:09)
[2020-12-10] MEDS: ENOXAPARIN NA (PORCINE) 100 MG/1 ML DISP.SYRIN SQ SCH (12:05)
[2020-12-10] MEDS: REMDESIVIR 100 MG in SODIUM CHLORIDE 230 ML IVPB SCH (12:05)
[2020-12-10] MEDS ORDERED: FAMOTIDINE 20 MG/50 ML IVPB 20 MG/50 ML MG IVPB SCH (13:00)
[2020-12-10] MEDS ORDERED: ENOXAPARIN NA (PORCINE) 80 MG/0.8 ML DISP.SYRIN SQ SCH (14:46)
[2020-12-10 15:35] VITALS: BP 131/82; PULSE 67; TEMP 98.3
== END 2020-12-10 20:11 | disposition short-term general hospital (02) | DRG 561 ==
LOC: JER 05:32 → JERBED 09:32 → J8W 14:58
PROVIDERS: ADMIT Family Medicine; ATTEND Internal Medicine
PROC: XW033E5 Introduction of Remdesivir Anti-infective into Peripheral Vein, Percutaneous Approach, New Technology Group 5 (ICD-10-PCS; principal; 2020-12-08)
DX: O98.53 Other viral diseases complicating the puerperium (principal); O99.53 Diseases of the respiratory system complicating the puerperium; U07.1 COVID-19; J12.82 Pneumonia due to coronavirus disease 2019; J10.00 Influenza due to other identified influenza virus with unspecified type of pneumonia; J96.01 Acute respiratory failure with hypoxia; O10.03 Pre-existing essential hypertension complicating the puerperium; M79.10 Myalgia, unspecified site; A08.39 Other viral enteritis
CPT/HCPCS: 36415; 71045-TC-FY; 80048; 80053; 81003; 82248; 82550; 82553; 82728; 82803; 82962; 83605; 83615; 83735; 83880; 84100; 84484; 85025; 85027; 85379; 85610; 85730; 86140; 86850; 86870; 86900; 86901; 86902; 87040; 87070; 87086; 87804; 87880; 93005; 93010; 94010; 99285-25; C9399; C9803; J0131; U0003